=== PATIENT | female | born 1975 | race Caucasian/White ===

== ENCOUNTER 2023-05-05 08:14 | Emergency (ER) | payer SELFPAY ==
[~2023-05-05] VITALS: Ht 157.5 cm; Wt 64.0 kg
[2023-05-05 08:23] VITALS: O2SAT 99
[2023-05-05] MEDS ORDERED: ACETAMINOPHEN 325MG TABLET PO ONE (10:00)
[2023-05-05] MEDS ORDERED: METOCLOPRAMIDE HCL 10MG TABLET PO ONE (10:00)
[2023-05-05] MEDS ORDERED: TETANUS, DIPHTHERIA, PERTUSSIS VAC/PF 0.5ML (>10YR OLD) IM ONE (10:30)
[2023-05-05] MEDS ORDERED: NAPR220C61 MT (12:10)
[2023-05-05 12:45] VITALS: BP 101/67; PULSE 78; RESP 18; TEMP 98.9
== END 2023-05-05 12:46 | disposition home or self-care (01) ==
LOC: ER 08:35
DX: S90.32XA Contusion of left foot, initial encounter (principal); S90.31XA Contusion of right foot, initial encounter; S09.90XA Unspecified injury of head, initial encounter; E11.9 Type 2 diabetes mellitus without complications; G89.11 Acute pain due to trauma; W18.39XA Other fall on same level, initial encounter; Y93.89 Activity, other specified; Y92.89 Other specified places as the place of occurrence of the external cause; Y99.8 Other external cause status; Z98.890 Other specified postprocedural states
CPT/HCPCS: 99285; 70450; 81025; 73630; 90715; 90471; J8597